=== PATIENT | female | born 1980 ===

== ENCOUNTER 2024-12-10 14:58 | Outpatient (RCR) | payer OTHER, SELFPAY | END 2024-12-22 11:51 | disposition home or self-care (01) | LOC: HO.PT 14:58 | PROVIDERS: PCP Family Medicine; Visit Provider Nurse Practitioner Family | DX: N81.84 Pelvic muscle wasting (principal) | CPT/HCPCS: 97110; 97112; 97140; 97162 ==

== ENCOUNTER 2025-06-16 13:55 | Outpatient (RCR) | payer OTHER, SELFPAY | END 2025-06-16 14:53 | disposition home or self-care (01) | LOC: HO.PT 13:55 | PROVIDERS: PCP Family Medicine; Visit Provider Family Medicine | DX: R10.2 Pelvic and perineal pain (principal) | CPT/HCPCS: 97110; 97112; 97140; 97161 ==